=== PATIENT | female | born 1990 | race African-American/Black ===

== ENCOUNTER → 2016-09-27 | Emergency (ER) | payer OTHER ==
[~2016-09-27] MED LIST: SODIUM CHLORIDE 1,000 ML IV ONE
[2016-09-27 13:43] VITALS: PULSE 107; TEMP 98.1; BMI 29.8
--- NOTE | 2016-09-27 14:05 | PDOC ---
History of Present Illness - General History Source: Patient Exam Limitations: No Limitations - History of Present Illness Initial Comments: 09/27/16 14:14 Patient is a 26 year old female with pmhx of IDDM who presents to the ED with blood sugar problem. Patient notes that she has not been compliant with her DM medication since June 2016. She reports blurry vision and numbness to her fingertips since this morning. She did not see her PMD since June. She denies fever, chills, nausea, or vomiting. <Radha Harper - Last Filed: 09/27/16 14:14> <Paul Leonard - Last Filed: 09/27/16 15:10> - General Chief Complaint: Blurry Vision Stated Complaint: BLURRY VISION, NUMB HANDS Time Seen by Provider: 09/27/16 13:59 Past History <Radha Harper - Last Filed: 09/27/16 14:14> - Past Medical History Asthma: No Cancer: No Cardiac Disorders: No Diabetes: Yes (IDDM TYPE 2) HTN: No Seizures: No Thyroid Disease: No - Surgical History Abdominal Surgery: Yes (HERNIA) - Psycho/Social/Smoking Cessation Hx Anxiety: No Suicidal Ideation: No Smoking Status: No Smoking History: Never smoked Have you smoked in the past 12 months: No Number of Cigarettes Smoked Daily: 0 Hx Alcohol Use: No Drug/Substance Use Hx: No Substance Use Type: None Hx Substance Use Treatment: No <Paul Leonard - Last Filed: 09/27/16 15:10> - Past Medical History Allergies/Adverse Reactions: Allergies Allergy/AdvReac Type Severity Reaction Status Date / Time Penicillins Allergy Verified 09/27/16 13:38 Home Medications: Ambulatory Orders Pnv95/Iron Fum/Folic Acid [ Caplet] 1 each PO DAILY 06/23/16 Ibuprofen [Advil -] 200 mg PO TID #21 tablet 07/01/16 Review of Systems - Review of Systems Able to Perform ROS?: Yes Comments:: 09/27/16 14:15 General: Absent: fever, chills HEENT: +vision changes GI: Absent: nausea, vomiting Musculoskeletal: +fingertip numbness <Radha Harper - Last Filed: 09/27/16 14:14> *Physical Exam - Vital Signs Last Vital Signs Temp Pulse Resp BP Pulse Ox 98.1 F 107 H 17 130/77 100 09/27/16 13:39 09/27/16 13:39 09/27/16 13:39 09/27/16 13:39 09/27/16 13:39 <Radha Harper - Last Filed: 09/27/16 14:14> - Vital Signs Last Vital Signs Temp Pulse Resp BP Pulse Ox 98.1 F 107 H 17 130/77 100 09/27/16 13:39 09/27/16 13:39 09/27/16 13:39 09/27/16 13:39 09/27/16 13:39 - Physical Exam General Appearance: Yes: Nourished, Appropriately Dressed. No: Apparent Distress HEENT: positive: Normal ENT Inspection Neck: positive: Supple. negative: Tender Respiratory/Chest: positive: Lungs Clear, Normal Breath Sounds. negative: Respiratory Distress Cardiovascular: positive: Regular Rhythm, Regular Rate Gastrointestinal/Abdominal: positive: Normal Bowel Sounds, Soft. negative: Tender Musculoskeletal: positive: Normal Inspection. negative: CVA Tenderness Extremity: positive: Normal Capillary Refill, Normal Range of Motion. negative : Pedal Edema Integumentary: positive: Normal Color. negative: Rash Neurologic: positive: Fully Oriented, Alert, Normal Mood/Affect, Normal Response , Motor Strength 5/5 <Paul Leonard - Last Filed: 09/27/16 15:10> *DC/Admit/Observation/Transfer - Attestations Scribe Attestion: 09/27/16 14:15 Documentation prepared by JOSÉ MIGUEL Muniz, acting as medical front desk specialist for Paul Leonard MD/. <Radha Harper - Last Filed: 09/27/16 14:14> <Paul Leonard - Last Filed: 09/27/16 15:10> Diagnosis at time of Disposition: Type 1 diabetes mellitus with hyperglycemia - Discharge Dispostion Disposition: HOME Condition at time of disposition: Improved - Patient Instructions Additional Instructions: CALL YOUR DOCTOR TODAY PLENTY OF FLUIDS FOLLOW YOUR DIET
[2016-09-27 14:19] VITALS: BP 140/80
== END | disposition home or self-care (01) ==
LOC: JER 13:33
PROC: 3E0337Z Introduction of Electrolytic and Water Balance Substance into Peripheral Vein, Percutaneous Approach (ICD-10-PCS; principal; 2016-09-27)
DX: E11.65 Type 2 diabetes mellitus with hyperglycemia (principal); Z79.4 Long term (current) use of insulin; Z91.14 Patient's other noncompliance with medication regimen
CPT/HCPCS: 99282-25

== ENCOUNTER 2016-12-21 08:57 | Day surgery (SDC) | payer OTHER ==
[2016-12-20 16:03] VITALS: BMI 29.8
--- NOTE | 2016-12-21 09:12 | HP ---
History & Physical Update - History History: No Change - Physical Physical: No Change - Assessment Assessment: No Change - Plan Plan: No Change
[2016-12-21 09:58] VITALS: BP 120/75; PULSE 91; TEMP 98
--- NOTE | 2016-12-21 10:41 | PN ---
Progress Note (short form) - Note Progress Note: Surgery Attending Patient BGM > 400mg/dl A: poorly controlled DM P: cancel procedure today patient referred to PMD's office F/U at the office in 2 weeks
== END 2016-12-21 10:10 | disposition home or self-care (01) ==
LOC: JASU-SURG 08:57
PROVIDERS: ATTEND Surgery
PROC: 0WB Anatomical Regions, General, Excision (ICD-10-PCS; principal; 2016-12-21)
DX: Z53.8 Procedure and treatment not carried out for other reasons (principal)
CPT/HCPCS: 36415; 82947; 84703

== ENCOUNTER 2017-08-09 12:07 | Emergency (ER) | payer OTHER ==
[2017-08-09 12:19] VITALS: BP 142/70; PULSE 99; TEMP 97.8; BMI 28.2
--- NOTE | 2017-08-09 14:04 | PDOC ---
History of Present Illness - General Chief Complaint: Abscess Boil Stated Complaint: ABSCESS ON HEAD Time Seen by Provider: 08/09/17 14:04 - History of Present Illness Initial Comments: 08/09/17 14:05 Ms. Kemp is a 27 yo female w/ pmh of IDDM who presents w/ complaints of a mass on the top of her head right above the hairline. She says that it has been present for a year and slowly growing, and she has previously been told it was a cyst. She had an appointment in the past to get it removed but reports she was not able to complete the procedure due to elevated blood sugar. She is here to pursue alternate options for removal as she reports current difficulty contacting her Gen Surgeon, Dr. Espinosa. The patient denies chest pain, shortness of breath, headache and dizziness. Denies fever, chills, nausea, vomit, diarrhea and constipation. Denies dysuria, frequency, urgency and hematuria. Allergies: Penicillins Past History - Past Medical History Allergies/Adverse Reactions: Allergies Allergy/AdvReac Type Severity Reaction Status Date / Time Penicillins Allergy Verified 08/09/17 12:19 Home Medications: Ambulatory Orders Pnv95/Iron Fum/Folic Acid [ Caplet] 1 each PO DAILY 06/23/16 Folic Acid 0.8 mg PO DAILY 12/20/16 Insulin Lispro [Humalog] 4 unit SQ AC 12/20/16 Anemia: No Asthma: No Cancer: No Cardiac Disorders: No CVA: No COPD: No CHF: No Dementia: No Diabetes: Yes (IDDM TYPE 2) GI Disorders: No Disorders: No HTN: No Hypercholesterolemia: No Liver Disease: No Seizures: No Thyroid Disease: No - Surgical History Abdominal Surgery: Yes ([facility] HERNIA bat 6 years old) - Suicide/Smoking/Psychosocial Hx Smoking Status: No Smoking History: Never smoked Have you smoked in the past 12 months: No Number of Cigarettes Smoked Daily: 0 Information on smoking cessation initiated: No Hx Alcohol Use: No Drug/Substance Use Hx: No Substance Use Type: None Hx Substance Use Treatment: No Review of Systems - Review of Systems Comments:: 08/09/17 14:51 GENERAL/CONSTITUTIONAL: +Occasional chills. No weakness. HEAD, EYES, EARS, NOSE AND THROAT: +Slowly growing mass slightly above hairline. No change in vision. No ear pain or discharge. No sore throat. CARDIOVASCULAR: No chest pain or shortness of breath RESPIRATORY: No cough, wheezing, or hemoptysis. GASTROINTESTINAL: No nausea, vomiting, diarrhea or constipation. GENITOURINARY: No dysuria, frequency, or change in urination. MUSCULOSKELETAL: No joint or muscle swelling or pain. No neck or back pain. SKIN: No rash NEUROLOGIC: No headache, vertigo, loss of consciousness, or change in strength/ sensation. ENDOCRINE: No increased thirst. No abnormal weight change HEMATOLOGIC/LYMPHATIC: No anemia, easy bleeding, or history of blood clots. ALLERGIC/IMMUNOLOGIC: No hives or skin allergy. *Physical Exam - Vital Signs Last Vital Signs Temp Pulse Resp BP Pulse Ox 97.8 F 99 H 18 142/70 100 08/09/17 12:17 08/09/17 12:17 08/09/17 12:17 08/09/17 12:17 08/09/17 12:17 - Physical Exam Comments: 08/09/17 14:52 GENERAL: Awake, alert, and fully oriented, in no acute distress HEAD: +Approximately gold ball sized discrete mass present directly above hairline in center of head. Non-tender, non-erythematous, no signs of infection or trauma. Normocephalic, atraumatic EYES: PERRLA, EOMI, sclera anicteric, conjunctiva clear ENT: Auricles normal inspection, hearing grossly normal, nares patent, oropharynx clear without exudates. Moist mucosa NECK: Normal ROM, supple, no lymphadenopathy, JVD, or masses LUNGS: No distress, speaks full sentences, clear to auscultation bilaterally HEART: Regular rate and rhythm, normal S1 and S2, no murmurs, rubs or gallops, peripheral pulses normal and equal bilaterally. ABDOMEN: Soft, nontender, normoactive bowel sounds. No guarding, no rebound. No masses EXTREMITIES: Normal inspection, Normal range of motion, no edema. No clubbing or cyanosis. NEUROLOGICAL: Cranial nerves II through XII grossly intact. Normal speech, normal gait, no focal sensorimotor deficits SKIN: Warm, Dry, normal turgor, no rashes or lesions noted. Medical Decision Making - Medical Decision Making 08/09/17 14:53 Ms. Kemp is a 27 yo female w/ pmh of IDDM who presents w/ slow growing mass to head above hairline. Mass evaluated with ultrasound and no drainable pockets or collections noted. Given chronicity and absent signs of infection (including pain, warmth, redness, fever) no concern for acute process at this time. Patient advised to follow-up with her Gen Surgeon Dr. Espinosa. Alternate Gen Surg information provided in case patient unable to get in contact. Will discharge to home. Patient verbalized understanding and agreement with this plan. *DC/Admit/Observation/Transfer Diagnosis at time of Disposition: Mass - Discharge Dispostion Disposition: HOME - Referrals Referrals: Angi Mckinney MD [Primary Care Provider] - Sravan Han MD [Staff Physician] - Sloan Espinosa MD [Staff Physician] - - Patient Instructions Additional Instructions: Please follow-up with general surgery as discussed. Return if any increase in pain, fever, drainage, or other concerning symptoms. - Post Discharge Activity
--- NOTE | 2017-08-09 14:53 | PDOC ---
Attending Attestation - Resident Resident Name: Sreekanth Monzon - ED Attending Attestation I have performed the following: I have examined & evaluated the patient, The case was reviewed & discussed with the resident, I agree w/resident's findings & plan, Exceptions are as noted - HPI HPI: 08/09/17 14:49 27y F hx of IDDM presents with chronic mass to her scalp that has been becoming more painful, pt also notes sometimes it gets alitlte larger and more tense. she has seen gen surgery for it, and was scheduled to have it removed by dr. Espinosa , but was delayed due to her blood sugar. pt deies any fever/chlls, vision changes, numbness/tingling/weakness, headache or other concerns. on exam the pt alppears well in n odistress pupils symmetric and reactiv eto light no facial asymmetry strength, intact and symmetric in upper extremities wlil ahve pt fu with surgery for evaluation no signs of abscess or infection/inflammation syspect cyst
== END 2017-08-09 15:07 | disposition home or self-care (01) ==
LOC: JER 12:07
DX: L02.811 Cutaneous abscess of head [any part, except face] (principal); E10.9 Type 1 diabetes mellitus without complications; Z79.4 Long term (current) use of insulin
CPT/HCPCS: 99281-25